=== PATIENT | female | born 1985 | race Caucasian/White ===

== ENCOUNTER → 2016-08-27 | Outpatient (CLI) | payer BC ==
[~2016-08-27] MED LIST: IBUP-1450 PO; INSPMPHMLG; LEVO25TA5 PO; PRENTAB26 PO
== END | disposition home or self-care (01) ==
LOC: C.PAPS 10:33
PROVIDERS: ATTEND Obstetrics & Gynecology
DX: Z01.419 Encounter for gynecological examination (general) (routine) without abnormal findings (principal)